=== PATIENT | female | born 1995 | race Two or more races ===

== ENCOUNTER 2016-06-01 10:30 | Emergency (ER) | payer OTHER ==
[~2016-06-01] VITALS: Ht 160 cm; Wt 59.0 kg
[2016-06-01 10:41] VITALS: BP 125/80
== END 2016-06-01 12:04 | disposition home or self-care (01) ==
LOC: ER 10:30
DX: H66.93 Otitis media, unspecified, bilateral (principal)

== ENCOUNTER 2016-11-28 08:40 | Emergency (ER) | payer OTHER ==
[~2016-11-28] VITALS: Ht 160 cm; Wt 59.0 kg
[2016-11-28 09:06] VITALS: BP 122/80
[2016-11-28] MEDS ORDERED: cefTRIAXone SOD 1,000 MG VL IM ONE (09:15)
== END 2016-11-28 09:37 | disposition home or self-care (01) ==
LOC: ER 08:40
DX: J03.90 Acute tonsillitis, unspecified (principal); H66.92 Otitis media, unspecified, left ear
CPT/HCPCS: 96372; 99283; J0696

== ENCOUNTER 2017-02-08 20:28 | Emergency (ER) | payer MEDICAID, OTHER ==
[~2017-02-08] VITALS: Ht 160 cm; Wt 59.9 kg
[2017-02-08 20:57] VITALS: BP 127/85
== END 2017-02-08 23:08 | disposition home or self-care (01) ==
LOC: ER 20:28
DX: J02.9 Acute pharyngitis, unspecified (principal); H92.03 Otalgia, bilateral

== ENCOUNTER 2017-03-19 15:51 | Emergency (ER) | payer SELFPAY ==
[~2017-03-19] VITALS: Ht 160 cm; Wt 58.5 kg
[2017-03-19 16:15] VITALS: BP 113/71
== END 2017-03-19 20:00 | disposition home or self-care (01) ==
LOC: ER 15:55
DX: J02.9 Acute pharyngitis, unspecified (principal); J45.909 Unspecified asthma, uncomplicated